=== PATIENT | female | born 1930 | race Caucasian/White ===

== ENCOUNTER 2016-09-17 08:30 | Emergency (ER) ==
[2016-09-17 08:42] VITALS: BP 220/109; TEMP 96.5; BMI 17.7
--- NOTE | 2016-09-17 08:47 | ED.PDOC ---
General ED Provider: Dr. MACKENZIE BECKETT JR Chief Complaint: Fall Stated Complaint: FELL BACKWARDS AND HIT BACK OF HEAD ON FLOOR. DENIES LOC. [ End ]96.5 69 20 93% 220/109 03/24 Time Seen by Physician: 08:57 Mode of Arrival: Ambulance Information Source: Patient, EMT Exam Limitations: No limitations Primary Care Provider: RONALD PHELAN Nursing and Triage Documentation Reviewed and Agree: No Review of Systems - Review Of Systems Constitutional: Reports: Weakness Eyes: Reports: No symptoms Ears, Nose, Mouth, Throat: Reports: No symptoms Respiratory: Reports: No symptoms Cardiac: Reports: No symptoms GI: Reports: No symptoms : Reports: No symptoms Musculoskeletal: Reports: Back pain Skin: Reports: Bruising Neurological: Reports: Anxiety Endocrine: Reports: No symptoms Hematologic/Lymphatic: Reports: No symptoms All Other Systems: Other Past Medical History - Past Medical History Previously Healthy: Yes Endocrine: Reports: None, Dyslipidemia Cardiovascular: Reports: None Respiratory: Reports: COPD Hematological: Reports: None Gastrointestinal: Reports: None, Diverticulitis Genitourinary: Reports: None Neuro/Psych: Reports: None Musculoskeletal: Reports: Back Pain Cancer: Reports: None Last Menstrual Period: NA - Surgical History General Surgical History: Reports: Cholecystectomy, Hernia Repair (Rt inguinal hernia repair), Other (Intestinal Relocation Bladder Mesh), Unknown - Family History Family History: Reports: Unknown - Social History Smoking Status: Current every day smoker, Light tobacco smoker Hx Substance Use: No Alcohol Screening: None Physical Exam - Physical Exam Appearance: Ill-appearing Ill-appearing: Mild Pain Distress: Mild Eyes: AMBER, EOMI, Conjunctiva clear ENT: Ears normal, Nose normal, Oropharynx normal Neck: Supple Respiratory: Airway patent, Breath sounds clear, Breath sounds equal, Respirations nonlabored Cardiovascular: RRR, Pulses normal, No rub, No murmur GI/: Soft, Nontender, No masses, Bowel sounds normal, No Organomegaly Musculoskeletal: Normal strength, ROM intact, No edema, No calf tenderness ( tender hips to ROM and tender low back, slight swelling back of head) Skin: Warm, Dry, Normal color Neurological: Sensation intact, Motor intact, Reflexes intact, Cranial nerves intact, Alert, Oriented Psychiatric: Affect appropriate, Mood appropriate Interpretation - EKG Interpretation Time of EKG #1: 09:11 Rate: Normal Rhythm: Sinus ST Segment: Other (LAE non acute) Re-Evaluation - Re-Evaluation Time of Re-Evaluation: 11:38 (PATIENT INITIALL REFUSED TREATMENT DISC WITHHUSBAND AND SPOKE WITH PATIENT) Physician Notification - Case Discussed Physician Notified: DR AMY TORRES FOR [facility] Time of Notification: 11:15 Critical Care Note - Critical Care Note Total Time (mins): 0 Course - Course Hematology/Chemistry: 09/17/16 09:05 09/17/16 09:05 Orders, Labs, Meds: Lab Review 09/17/16 09:05 WBC 8.74 RBC 5.22 Hgb 15.3 Hct 46.5 MCV 89.1 MCH 29.3 MCHC 32.9 RDW Coeff of Lonnie 14.8 Plt Count 202 Immature Gran % (Auto) 1.1 Neut % (Auto) 84.5 Lymph % (Auto) 7.3 L Sharkey % (Auto) 4.2 Eos % (Auto) 2.3 Baso % (Auto) 0.6 Immature Gran # (Auto) 0.1 Neut # 7.4 H Lymph # 0.6 Sharkey # 0.4 Eos # 0.2 Baso # 0.1 Sodium 143 Potassium 3.6 Chloride 110 H Carbon Dioxide 26 Anion Gap 10.6 BUN 17 Creatinine 0.73 Estimated GFR (MDRD) 75.00 BUN/Creatinine Ratio 23.28 Glucose 103 Calcium 9.5 Total Bilirubin 0.67 AST 29 ALT 24 Alkaline Phosphatase 51 L B-Natriuretic Peptide 88 Total Protein 7.9 Albumin 4.1 Globulin 3.8 Albumin/Globulin Ratio 1.08 Orders Category Date Time Status EKG-(ED ONLY) Stat CARDIO 09/17/16 08:46 Completed B-TYPE NATRIURETIC PEPTIDE Stat LAB 09/17/16 09:05 Completed CBC W/ AUTO DIFF Stat LAB 09/17/16 09:05 Completed COMPREHENSIVE METABOLIC PANEL Stat LAB 09/17/16 09:05 Completed Hydromorphone HCl [Dilaudid 1 mg/ml Syringe] MEDS 09/17/16 09:10 Discontinued 1 mg IVP ONCE STA Metoclopramide HCl [Reglan] MEDS 09/17/16 10:35 Discontinued 10 mg IVP ONCE STA Metoprolol Tartrate [Lopressor] MEDS 09/17/16 10:00 Discontinued 2.5 mg IVP ONCE STA Ondansetron HCl/Pf [Zofran 4 mg/2 ml] MEDS 09/17/16 09:10 Discontinued 4 mg IVP ONCE STA CHEST, 1V AP ONLY Stat RADS 09/17/16 08:[address] CERVICAL SPINE W/O CONTRAST Stat RADS 09/17/16 08:[address] HEAD W/O CONTRAST Stat RADS 09/17/16 08:[address] LUMBAR SPINE W/O CONTRAST Stat RADS 09/17/16 08:[address] PELVIS W/O CONTRAST Stat RADS 09/17/16 08:46 Completed Medications Discontinued Medications Generic Name Dose Route Start Last Admin Trade Name Freq PRN Reason Stop Dose Admin Hydromorphone HCl 1 mg 09/17/16 09:10 09/17/16 09:20 Dilaudid 1 Mg/Ml Syringe IVP 09/17/16 09:11 1 mg ONCE STA Administration Metoclopramide HCl 10 mg 09/17/16 10:35 09/17/16 10:49 Reglan IVP 09/17/16 10:36 10 mg ONCE STA Administration Metoprolol Tartrate 2.5 mg 09/17/16 10:00 09/17/16 10:13 Lopressor IVP 09/17/16 10:01 2.5 mg ONCE STA Administration Ondansetron HCl 4 mg 09/17/16 09:10 09/17/16 09:19 Zofran 4 Mg/2 Ml IVP 09/17/16 09:11 4 mg ONCE STA Administration Vital Signs: Temp Pulse Resp BP Pulse Ox 09/17/16 08:34 96.5 F L 69 20 220/109 H 93 L Departure - Departure Time of Disposition: 12:50 Disposition: TSF SHORT-TRM HOSP Discharge Problem: Falls Compression fracture of lumbar vertebra Qualifiers: Encounter type: initial encounter Fracture type: closed Qualifier Code: ( S32.000A) Wedge compression fracture of unspecified lumbar vertebra, initial encounter for closed fracture Instructions: Thoracolumbar Fracture (ED) Condition: Stable Pt referred to PMD for follow-up: No (neurosurgery) Allergies/Adverse Reactions: Allergies codeine Adverse Reaction (Verified 09/17/16 08:33) meperidine HCl [From Demerol] Adverse Reaction (Verified 09/17/16 08:33) morphine Adverse Reaction (Verified 09/17/16 08:33) oxycodone [Oxycodone] Adverse Reaction (Verified 09/17/16 08:33) propoxyphene napsylate [From Darvocet-N 100] Adverse Reaction (Verified 08:33) tramadol HCl [From Ultracet] Adverse Reaction (Verified 09/17/16 08:33) Home Medications: Ambulatory Orders Albuterol Sulfate 0.083% Neb [Albuterol 0.083% Neb] 1 vial NEB QID 01/24/13 Aspirin [Aspirin EC] 81 mg PO WEEKLY 01/24/13 Fenofibrate [Tricor] 160 mg PO DAILY 01/24/13 Latanoprost [Xalatan] 1 drop EACHEYE BEDTIME 01/24/13 Pravastatin Sodium [Pravachol] 20 mg PO BEDTIME 01/24/13 Ascorbic Acid [Vitamin C] 1,000 mg PO DAILY 10/21/15 Calcium Carbonate [Calcium] 600 mg PO DAILY 09/17/16 Lorazepam [Ativan] 0.5 mg PO BEDTIME 09/17/16
[2016-09-17] MEDS ORDERED: ZOFRAN 4 MG/2 ML IVP STA (09:10)
[2016-09-17] MEDS ORDERED: DILAUDID 1 MG/ML SYRINGE IVP STA (09:10)
[2016-09-17 09:16] LABS: BASOPHILS # (AUTO) 0.1 K/uL (0-0.2); BASOPHILS % (AUTO) 0.6 % (0.0-3.0); EOSINOPHILS # (AUTO) 0.2 K/ul (0.0-0.7); EOSINOPHILS % (AUTO) 2.3 % (0.0-7.0); HEMATOCRIT 46.5 % (37.0-47.0); HEMOGLOBIN 15.3 g/dl (12.0-16.0); IMMATURE GRANULOCYTE % (AUTO) 1.1 % (0.0-5.0); LYMPHOCYTES # (AUTO) 0.6 K/uL (0.60-3.4); LYMPHOCYTES % (AUTO) 7.3 (10.0-50.0); MEAN CORPUSCULAR HEMOGLOBIN 29.3 pg (27.0-31.0); MEAN CORPUSCULAR HGB CONC 32.9 (31.8-35.4); MEAN CORPUSCULAR VOLUME 89.1 fl (81.0-99.0); MONOCYTES # (AUTO) 0.4 K/uL (0.4-2.0); MONOCYTES % (AUTO) 4.2 (0-10); NEUTROPHILS # (AUTO) 7.4 K/ul (2.0-6.9); NEUTROPHILS % (AUTO) 84.5; PLATELET COUNT 202 10^3/uL (140-440); RED BLOOD COUNT 5.22 10^6/ul (4.20-5.40); WHITE BLOOD COUNT 8.74 K/ul (4.6-10.2)
[2016-09-17 09:37] LABS: ALBUMIN 4.1 g/dL (3.4-5.0); ALBUMIN/GLOBULIN RATIO 1.08; ANION GAP 10.6; BILIRUBIN,TOTAL 0.67 mg/dL (0.00-1.20); BUN/CREATININE RATIO 23.28; CALCIUM 9.5 mg/dL (8.2-10.2); CREATININE 0.73 mg/dL (0.60-1.30); POTASSIUM 3.6 mmol/L (3.5-5.10); TOTAL PROTEIN 7.9 g/dL (5.8-8.1)
[2016-09-17] MEDS ORDERED: LOPRESSOR IVP STA (10:00)
--- NOTE | 2016-09-17 10:08 | CT ---
EXAM: CT cervical spine without contrast. HISTORY: Initial presentation for neck trauma due to a fall. COMPARISON: None available. TECHNIQUE: Multiple axial images of the cervical spine were obtained without intravenous contrast. Images were reformatted in the sagittal and coronal planes. FINDINGS: Approximately 0.2 cm anterolisthesis of C4 on C5 noted. Alignment is otherwise grossly n ormal. Prevertebral body heights are maintained. There is moderate loss of disc height at C5-6 and mild loss of disc height at C6-7. Disc osteophyte formation at C6-7 causes mild central canal sten osis. These findings along with uncovertebral hypertrophy and facet arthropathy cause multilevel ne ural foraminal narrowing, moderate at C5-6 and C6-7 on the left. No fracture identified. Paraverte bral soft tissues are without acute abnormality. IMPRESSION: No acute abnormality of the cervical spine.
--- NOTE | 2016-09-17 10:12 | CT ---
EXAM: CT BRAIN HISTORY: Fall, hit back of head TECHNIQUE: CT brain without intravenous contrast. 5-mm axial sections with Reformations. COMPARISON: 02/12/2013 FINDINGS: There is generalized age-related atrophy. At least mild chronic microvascular ischemic change is luque ggested. A few basal ganglia calcifications are noted. These findings are stable. Brain otherwise is unremarkable without distinct evidence of hemorrhage or large vessel distribution recent ischemic infarction. There is no suggestion of acute hydrocephalus or subdural fluid collection. No mass o r mass effect. No skull fracture is identified. Paranasal sinuses are clear. Probable trace bilateral mastoid pro cess effusions. There is a left occipital peripheral soft tissue scalp contusion. IMPRESSION: Left occipital peripheral soft tissue scalp contusion. No skull fracture or acute intracranial inju ry/process. Trace bilateral mastoid process effusions.
--- NOTE | 2016-09-17 10:12 | CT ---
EXAM: CT pelvis without contrast HISTORY: Fall with hip pain. COMPARISON: CT abdomen pelvis 02/12/2013 TECHNIQUE: Serial axial images of the pelvis were obtained without contrast and reviewed in multipl e planes. FINDINGS: There is no cortical irregularity or displaced fracture of the pelvis or hips. There is n o lytic or blastic lesion identified. The joint spaces are unremarkable with mild narrowing. The s oft tissues in the pelvis demonstrates moderate atherosclerotic disease. The small bowel and colon are unremarkable. The urinary bladder is distended. IMPRESSION: 1. No acute abnormality or displaced fracture of the pelvis. 2. Mild degenerative change and narrowing of the hip joint spaces.
--- NOTE | 2016-09-17 10:16 | CT ---
EXAM: CT lumbar spine without contrast. HISTORY: Initial presentation for low back pain following a fall. COMPARISON: 10/21/2015. TECHNIQUE: Multiple axial images of the lumbar spine were obtained without intravenous contrast. I mages were reformatted in the sagittal and coronal planes. FINDINGS: There is mild compression deformity of L1 vertebral body with fracture lines involving th e anterior, middle and posterior aspects of the vertebral body. No significant retropulsion identif ied. Vertebral body heights are otherwise normal. Right convex curvature centered near L4 again no mikal. There is mild loss of disc height at L2-3 and L3-4. Multilevel degenerative changes present w ith stable mild central canal stenosis at L2-3 and L4-5 due to disc osteophyte formation, facet arth ropathy and thickening of the ligamentum flavum as well as multilevel neural foraminal narrowing, mo derate at multiple levels. Paravertebral soft tissues are without acute abnormality. IMPRESSION: 1. Acute appearing mild L1 compression fracture. 2. Stable degenerative changes.
[2016-09-17] MEDS ORDERED: REGLAN IVP STA (10:35)
--- NOTE | 2016-09-17 10:39 | DI ---
EXAM: Chest one view, frontal view only. HISTORY: Chest pain. COMPARISON: 05/14/2015. FINDINGS: The heart size is at the upper limits of normal. There is no pulmonary vascular congesti on. The lungs are clear. No pleural effusion or pneumothorax is seen. Mild compression deformity of L1 noted. Cholecystectomy clips noted. Since the prior study, there has been no significant int erval change in the appearance of the chest. IMPRESSION: 1. No acute cardiopulmonary process. 2. Mild L1 compression fracture.
== END 2016-09-17 12:53 | disposition short-term general hospital (02) ==
LOC: ED 08:30
DX: S32.000A Wedge compression fracture of unspecified lumbar vertebra, initial encounter for closed fracture (principal); S09.90XA Unspecified injury of head, initial encounter; R53.1 Weakness; W19.XXXA Unspecified fall, initial encounter; Z79.899 Other long term (current) drug therapy; F17.210 Nicotine dependence, cigarettes, uncomplicated
CPT/HCPCS: 36415; 80053; 83880; 85025; 93005; 93010; 96374; 96375; 99285

== ENCOUNTER 2016-09-17 12:53 | Outpatient (CLI) ==
[2016-09-17 08:42] VITALS: BMI 17.7
== END 2016-09-17 12:54 ==
LOC: AMBL 12:53
PROVIDERS: ATTEND Emergency Medicine
DX: S32.019A Unspecified fracture of first lumbar vertebra, initial encounter for closed fracture (principal); W19.XXXA Unspecified fall, initial encounter; R53.1 Weakness; R41.0 Disorientation, unspecified; T50.905A Adverse effect of unspecified drugs, medicaments and biological substances, initial encounter

== ENCOUNTER 2017-03-09 15:03 | Outpatient (CLI) ==
[2017-03-09 15:32] LABS: BASOPHILS % (AUTO) 0.9 % (0.0-3.0); EOSINOPHILS # (AUTO) 0.4 K/ul (0.0-0.7); EOSINOPHILS % (AUTO) 7.9 % (0.0-7.0); HEMATOCRIT 42.7 % (37.0-47.0); HEMOGLOBIN 14.4 g/dl (12.0-16.0); LYMPHOCYTES # (AUTO) 0.8 K/uL (0.60-3.4); LYMPHOCYTES % (AUTO) 17.3 (10.0-50.0); MEAN CORPUSCULAR HEMOGLOBIN 29.8 pg (27.0-31.0); MEAN CORPUSCULAR HGB CONC 33.7 (31.8-35.4); MEAN CORPUSCULAR VOLUME 88.2 fl (81.0-99.0); MONOCYTES # (AUTO) 0.3 K/uL (0.4-2.0); MONOCYTES % (AUTO) 7.3 (0-10); NEUTROPHILS # (AUTO) 3.1 K/ul (2.0-6.9); NEUTROPHILS % (AUTO) 66.6; PLATELET COUNT 218 10^3/uL (140-440); RED BLOOD COUNT 4.84 10^6/ul (4.20-5.40); WHITE BLOOD COUNT 4.67 K/ul (4.6-10.2)
[2017-03-09 16:12] LABS: ALBUMIN/GLOBULIN RATIO 1.11; ANION GAP 12.7; BILIRUBIN,TOTAL 0.68 mg/dL (0.00-1.20); BUN/CREATININE RATIO 16.92; CALCIUM 10.2 mg/dL (8.2-10.2); CREATININE 0.65 mg/dL (0.60-1.30); POTASSIUM 3.7 mmol/L (3.5-5.10); TOTAL PROTEIN 7.6 g/dL (5.8-8.1)
== END 2017-03-09 15:04 | disposition home or self-care (01) ==
LOC: LAB 15:03
PROVIDERS: ATTEND Internal Medicine
DX: E78.5 Hyperlipidemia, unspecified (principal); J44.9 Chronic obstructive pulmonary disease, unspecified; R05 Cough
CPT/HCPCS: 36415; 80053; 80061; 84443; 85025

== ENCOUNTER 2017-03-10 07:53 | Outpatient (CLI) ==
--- NOTE | 2017-03-10 10:13 | CT ---
EXAM: CT abdomen pelvis with contrast HISTORY: Right upper quadrant pain COMPARISON: 02/12/2013 TECHNIQUE: CT abdomen pelvis performed with intravenous contrast. Coronal and sagittal reformatted images obtained. FINDINGS: Subsegmental atelectasis and/or scarring at the lung bases. No free air. No acute abnorm alities of the bones.. There is a severe compression fracture of L1 that is progressed from 09/18/[address] lumbar spine with associated 5 mm retropulsion causing moderate central canal narrowing. Hear t top normal in size. Small pericardial effusion. Liver appears normal. Patient status post cholec ystectomy. Pancreas unremarkable. Granulomatous calcification in the spleen. Spleen top normal in size. Adrenals unremarkable. 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 No hydronephrosis. There are prominent left pelvic collateral vessels. Aorta normal in caliber. Moderate atherosclerosis. No lymphaden opathy or ascites identified. Stomach unremarkable. No dilated loops small bowel. Appendix not vis ualized. Colonic diverticulosis. Uterus unremarkable. No inflammatory stranding identified in the. Bladder unremarkable. No inflammatory stranding identified in the abdomen pelvis. IMPRESSION: 1. No acute inflammatory process identified in the abdomen. 2. Severe compression fracture of L1 that is progressed from 09/17/2016 CT lumbar spine with associat ed 5 mm retropulsion causing moderate central canal narrowing. 3. Colonic diverticulosis. 4. Small pericardial effusion and surgery. 5. Prominent left pelvic vessels, a finding that can be seen in and pelvic congestion syndrome. 6. Atherosclerosis
== END 2017-03-10 07:54 | disposition home or self-care (01) ==
LOC: RAD 07:53
PROVIDERS: ATTEND Internal Medicine
DX: R10.11 Right upper quadrant pain (principal)

== ENCOUNTER 2017-07-28 15:41 | Outpatient (CLI) ==
--- NOTE | 2017-07-28 16:24 | US ---
EXAM: Left lower extremity venous Doppler History: Left lower extremity pain and swelling. Technique: Multiple sonographic images through the left lower extremity were obtained. Color duplex Doppler was used to interrogate vascular flow. Findings: The left common femoral, greater saphenous, profunda, superficial femoral, popliteal, emma kirsta, posterior tibial and anterior tibial veins demonstrate spontaneous flow with normal compression and normal augmentation. 4.4 cm x 1.2 cm x 2.0 cm collection of fluid within the left popliteal fos sa. There is left lower extremity subcutaneous edema. Impression: 1. No sonographic evidence for deep venous thrombosis. 2. Left Linares's cyst. 3. Left lower extremity subcutaneous edema
== END 2017-07-28 15:42 | disposition home or self-care (01) ==
LOC: RAD 15:41
PROVIDERS: ATTEND Internal Medicine
DX: M79.605 Pain in left leg (principal); M79.89 Other specified soft tissue disorders

== ENCOUNTER 2018-02-16 09:03 | Outpatient (CLI) ==
--- NOTE | 2018-02-16 10:56 | DI ---
EXAM: Two views of the chest. History: Cough. Comparison: Chest radiograph 09/17/2016 Findings: Heart size is within normal limits. Atherosclerotic vascular calcifications. Nodular den sity within the right lower lung is new compared to the prior study. Probable emphysema. Age indete rminate compression fracture within the lower thoracic and upper lumbar spine. Scoliosis. No pleural fluid and no pneumothorax. Impression: 1. Indeterminate nodular density within the right lower hemithorax. Recommend further evaluation wit h chest CT. 2. Indeterminate compression fractures within the lower thoracic and upper lumbar spine. 3. Probable emphysema.
--- NOTE | 2018-02-16 11:05 | US ---
EXAM: Bilateral carotid artery Doppler History: Dizziness, lightheaded Comparison: Brain MRI 02/16/2018 Technique: Multiple sonographic images through the bilateral internal carotid arteries were obtained . Color duplex Doppler was used to interrogate vascular flow. Findings: The right ICA peak systolic velocity is within normal limits measuring 50 cm/sec. The right ICA/cca P SV ratio is normal in 0.80. The right vertebral artery is patent and demonstrates antegrade flow. G ray scale images demonstrate mild plaque buildup within the right internal carotid artery. The left ICA peak systolic velocity is within normal limits measuring 50 cm/sec. The left ICA/cca PS V ratio is normal at 0.90. The left vertebral artery is patent and demonstrates antegrade flow. Gra y scale images demonstrate mild to moderate plaque buildup within the left internal carotid artery. Impression: No significant hemodynamic stenosis of the bilateral internal carotid arteries
--- NOTE | 2018-02-16 11:28 | MRI ---
EXAM: MRI brain without and with IV contrast. DATE: 16 February 2018. HISTORY: Ataxia, dizziness, forgetfulness. TECHNIQUE: Sagittal T1W pre and postcontrast, axial T2W, axial FLAIR, axial T1W pre and postcontrast , axial DWI, coronal T1W postcontrast, and coronal T2W GRE sequences of the brain were obtained using 1.5 Rosaline magnet. Note: Distortion artifact is observed at the posterior fossa (right infralateral region most affecte d). Motion artifacts on several sequences limit sensitivity as well. CONTRAST: Omniscan - 7 ml IV. COMPARISON: CT head 17 September 2016. FINDINGS: The lateral ventricles, third ventricle, Sylvian fissures appear somewhat disproportionall y large. Transverse dimension across the third ventricle is 8 mm. Transverse dimension across both lateral ventricles is 4.2 cm. Many frontal and parietal lobe sulci are minimal/mildly prominent. Smalls barachnoid spaces overlying the supra aspect of the frontal lobes are slightly prominent. Fourth george tricle is not significantly enlarged. Aqueduct of Sylvius appears patent, but narrow. No midline sh ift, mass effect or abnormal extra-axial fluid collection is apparent. No acute infarct, hemorrhage or enhancing neoplasm is identified. No abnormal contrast enhancement is identified in the brain, me ninges or dura. Narrow, confluent rim of T2W/FLAIR hyperintensity is observed in the white matter ab utting each lateral ventricle. Many 2-15 mm, T2W/FLAIR bright foci are scattered within the cook r adiata, centrum semiovale and subcortical white matter bilaterally. The abbott - white matter differen tiation is normal. Small areas of T2W GRE black signal within each globus pallidus appear benign. T 2W GRE black signal in the region of pineal gland corresponds with benign calcification on CT scan. No migration or diverticulation abnormality is identified. The amygdala and parahippocampal gyri are similar bilaterally. Each hippocampal head appears somewhat small. The 7th/8th cranial nerve compl exes, cerebellopontine angles, brainstem, and visible cervical spinal cord are normal. There is no c erebellar tonsillar ectopia. The pituitary gland is normal in size and signal. Corpus callosum is n ormal in size, but the body is mildly bowed upward due to ventricular prominence. Flow voids are pre sent in the major intracranial arteries and in the dural venous sinuses. No aneurysm, AVM or dural v enous sinus thrombosis is apparent. Appearance of the lens of each eye suggests prior cataract surge ry. No other orbit abnormality is identified. The mastoid air cells are unremarkable. Frontal sinu ses are small. There is no acute sinusitis. No calvarial neoplasm or acute fracture is evident. A T2W mildly bright, T1W isointense, T1W slightly dark, mildly enhancing focus (11.4 x 14 x 21 mm) near the posterosuperior margin of the left parotid gland is best seen on axial image #1. IMPRESSIONS: 1. No acute infarct, hemorrhage, enhancing neoplasm or hydrocephalus. 2. Mild/moderate cerebral leukomalacia - likely small vessel disease vs chronic hypertensive encepha lopathy. 3. Mild central the> peripheral cerebral atrophy. 4. Possible mild bilateral hippocampal atrophy. 5. Minor, benign basal ganglia mineral deposition. Unexpected findin. Mildly enhancing lesion near the posterior superior aspect of the right paro tid gland superficial lobe. DDX: Lymphadenopathy is statistically most likely. A benign or maligna nt neoplasm is not excluded. Correlation with physical exam recommended. Ultrasound may be of some v alue in further evaluation of this structure. Dedicated CT scan or MRI of the soft tissues of the [facility] would likely help in more in further characterization of this lesion.
== END 2018-02-16 09:04 | disposition home or self-care (01) ==
LOC: RAD 09:03
PROVIDERS: ATTEND Internal Medicine
DX: R41.3 Other amnesia (principal); R05 Cough; R42 Dizziness and giddiness; R27.0 Ataxia, unspecified